=== PATIENT | female | born 1955 | race Two or more races ===

== ENCOUNTER 2023-08-26 07:36 | Outpatient (CLI) | payer OTHER | END 2023-08-26 07:37 | disposition home or self-care (01) | LOC: NUCLEAR 07:36 | DX: I73.9 Peripheral vascular disease, unspecified (principal) ==

== ENCOUNTER 2023-09-14 07:39 | Outpatient (CLI) | payer OTHER | END 2023-09-14 07:40 | disposition home or self-care (01) | LOC: NUCLEAR 07:39 | PROVIDERS: ATTEND Internal Medicine | DX: I82.403 Acute embolism and thrombosis of unspecified deep veins of lower extremity, bilateral (principal) ==

== ENCOUNTER 2024-02-22 08:35 | Inpatient (IN) | payer OTHER ==
[~2024-02-22] VITALS: Ht 157.5 cm; Wt 108.9 kg
[2024-02-22] MEDS ORDERED: AVAPRO150 MG (08:46)
[2024-02-22] MEDS ORDERED: PROTONIX40 MG (08:46)
[2024-02-22] MEDS ORDERED: PEPCID AC20 MG (08:47)
[2024-02-22] MEDS ORDERED: NEURONTIN600 M1 (08:47)
[2024-02-22] MEDS ORDERED: ELIQUIS5 MG (08:47)
[2024-02-22] MEDS ORDERED: DETROL LA4 MG (08:48)
[2024-02-22] MEDS ORDERED: DAFLONEX-XL 11300 MG (08:49)
[2024-02-22 11:06] LABS: URINE APPEARANCE Clear; URINE BILIRRUBIN Negative (NEGATIVE); URINE BLOOD Moderate; URINE COLOR Yellow; URINE GLUCOSE Negative (NEGATIVE); URINE KETONE Negative (NEGATIVE); URINE LEUKOCYTE Negative; URINE NITRATE Negative; URINE PROTEIN Negative (NEGATIVE); URINE UROBILINOGEN 0.2 E.U./dl
[2024-02-22 11:07] LABS: URINE BACTERIA 230.4 uL (0.0-1933); URINE EPITHELIAL CELLS 17.5 uL (0.0-38.8); URINE RBC 76.9 uL (0.0-20.8); URINE WBC 5.5 uL (0.0-23.2)
[2024-02-22 11:13] LABS: HEMATOCRIT 32.4 % (36.0-45.00); HEMOGLOBIN 10.9 g/dL (12.0-15.00); MEAN CELL VOLUME 90.4 fL (80.00-100.00); MEAN CORPUSCULAR HEMOGLOBIN 30.4 pg (27.00-32.0); MEAN CORPUSCULAR HGB CONC 33.6 g/dl (32.0-36.0); PLATELET COUNT 239 K/uL (150-450); RED BLOOD COUNT 3.59 M/uL (4.00-6.00); RED CELL DISTRIBUTION WIDTH 13.6 % (11.5-14.5)
[2024-02-22 11:35] LABS: ALBUMIN 3.7 gm/dL (3.4-5.0); BILIRUBIN TOTAL 0.57 mg/dL (0.3-1.2); CALCIUM 9.4 mg/dL (8.5-10.1); CREATININE SERUM 1.06 mg/dL (0.55-1.02); GFR 51.71; GLOBULINA 3.7 G/DL (2.4-3.5); POTASSIUM 4.28 mEq/L (3.5-5.1); TOTAL PROTEIN 7.4 gm/dL (6.4-8.2)
[2024-02-22 11:37] LABS: URINE CAST 0.15 uL (0.0-1.40)
[2024-02-22] MEDS ORDERED: GABAPENTIN 600 MG TABLET PO SCH (14:40)
[2024-02-22] MEDS ORDERED: APIXABAN 5 MG TABLET PO SCH (14:42)
[2024-02-22] MEDS ORDERED: PANTOPRAZOLE SODIUM 40 MG TABLET.DR PO SCH (14:43)
[2024-02-22] MEDS ORDERED: 0.9 % SODIUM CHLORIDE 1,000 ML IV SCH (14:45)
[2024-02-22 16:00] VITALS: BP 180/65; O2SAT 97
[2024-02-22] MEDS ORDERED: CLINDAMYCIN PHOSPHATE 300 MG in 0.9 % SODIUM CHLORIDE 50 ML IV SCH (17:00)
[2024-02-22] MEDS ORDERED: IRBESARTAN 150 MG TABLET PO SCH (17:00)
[2024-02-22] MEDS ORDERED: FAMOTIDINE/PF 20 MG in 0.9 % SODIUM CHLORIDE 100 ML IV SCH (17:00)
[2024-02-22 17:12] LABS: INR 1.07; PARTIAL THROMBOPLASTIN TIME 29.9 SECONDS (22.0-34.0); PROTHROMBIN TIME 11.6 SECONDS (9.0-11.5)
[2024-02-22 17:33] LABS: ALBUMIN 3.6 gm/dL (3.4-5.0); CREATININE SERUM 0.88 mg/dL (0.55-1.02); GFR 64.09; PHOSPHOROUS 4.1 mg/dL (2.5-4.9); POTASSIUM 4.02 mEq/L (3.5-5.1)
[2024-02-22 17:34] LABS: C-REACTIVE PROTEIN 0.77 MG/DL (0.00-0.29)
[2024-02-22 17:38] VITALS: BP 158/72; O2SAT 96
[2024-02-22 20:58] VITALS: BP 150/61
[2024-02-23 02:43] VITALS: BP 106/55
[2024-02-23 10:29] VITALS: BP 115/55
[2024-02-23] MEDS ORDERED: CEFTRIAXONE SODIUM 2,000 MG VIAL IV SCH (12:22)
[2024-02-23] MEDS ORDERED: ACETAMINOPHEN 500 MG GEL..CAP PO PRN (15:00)
[2024-02-23] MEDS ORDERED: VANCOMYCIN HCL 5 MG/ML REDILUIDO IV SCH (17:00)
[2024-02-23 18:47] VITALS: BP 120/70; O2SAT 100
[2024-02-23] MEDS ORDERED: DIPHENHYDRAMINE HCL 50 MG/ML VIAL 1ML ONE (21:33)
[2024-02-23] MEDS ORDERED: DIPHENHYDRAMINE HCL 50 MG/ML VIAL 1ML IV ONE (21:45)
[2024-02-24 01:53] VITALS: BP 137/57
[2024-02-24 07:15] LABS: HEMATOCRIT 29.1 % (36.0-45.00); HEMOGLOBIN 9.9 g/dL (12.0-15.00); MEAN CELL VOLUME 89.6 fL (80.00-100.00); MEAN CORPUSCULAR HEMOGLOBIN 30.6 pg (27.00-32.0); MEAN CORPUSCULAR HGB CONC 34.1 g/dl (32.0-36.0); PLATELET COUNT 204 K/uL (150-450); RED BLOOD COUNT 3.25 M/uL (4.00-6.00); RED CELL DISTRIBUTION WIDTH 13.5 % (11.5-14.5)
[2024-02-24 07:42] LABS: BILIRUBIN TOTAL 0.46 mg/dL (0.3-1.2); CALCIUM 8.5 mg/dL (8.5-10.1); CREATININE SERUM 0.84 mg/dL (0.55-1.02); GFR 67.63; GLOBULINA 2.9 G/DL (2.4-3.5); MAGNESIUM 1.8 mg/dL (1.8-2.4); PHOSPHOROUS 3.8 mg/dL (2.5-4.9); POTASSIUM 4.15 mEq/L (3.5-5.1); TOTAL PROTEIN 5.9 gm/dL (6.4-8.2)
[2024-02-24 07:45] LABS: C-REACTIVE PROTEIN 0.6 MG/DL (0.00-0.29)
[2024-02-24 08:30] VITALS: BP 124/61; O2SAT 98
[2024-02-24 15:44] LABS: PH,URINE 6.5 (5.0-8.0); URINE APPEARANCE Clear; URINE BILIRRUBIN Negative (NEGATIVE); URINE BLOOD Moderate; URINE COLOR Yellow; URINE GLUCOSE Negative (NEGATIVE); URINE KETONE Negative (NEGATIVE); URINE LEUKOCYTE Negative; URINE NITRATE Negative; URINE PROTEIN Negative (NEGATIVE); URINE UROBILINOGEN 0.2 E.U./dl
[2024-02-24 15:47] LABS: URINE BACTERIA 1326.7 uL (0.0-1933)
[2024-02-24 15:49] LABS: URINE EPITHELIAL CELLS 1.2 uL (0.0-38.8)
[2024-02-24] MEDS ORDERED: DIPHENHYDRAMINE HCL 50 MG/ML VIAL 1ML IV SCH (17:00)
[2024-02-24 18:33] VITALS: BP 145/64; O2SAT 100
[2024-02-25] VITALS: BP 124/68
[2024-02-25 08:17] VITALS: BP 144/82
[2024-02-25] MEDS ORDERED: IRBESARTAN 150 MG TABLET PO SCH (09:00)
[2024-02-25 18:12] VITALS: BP 150/67; O2SAT 96
[2024-02-26 01:58] VITALS: BP 133/76; O2SAT 97
[2024-02-26 08:45] VITALS: BP 122/70
[2024-02-26 10:36] LABS: HEMATOCRIT 31.4 % (36.0-45.00); HEMOGLOBIN 10.6 g/dL (12.0-15.00); MEAN CELL VOLUME 89.5 fL (80.00-100.00); MEAN CORPUSCULAR HEMOGLOBIN 30.2 pg (27.00-32.0); MEAN CORPUSCULAR HGB CONC 33.7 g/dl (32.0-36.0); PLATELET COUNT 213 K/uL (150-450); RED BLOOD COUNT 3.51 M/uL (4.00-6.00); RED CELL DISTRIBUTION WIDTH 13.5 % (11.5-14.5)
[2024-02-26 11:01] LABS: ALBUMIN 3.2 gm/dL (3.4-5.0); BILIRUBIN TOTAL 0.5 mg/dL (0.3-1.2); CALCIUM 8.9 mg/dL (8.5-10.1); CREATININE SERUM 0.94 mg/dL (0.55-1.02); GFR 59.39; GLOBULINA 2.9 G/DL (2.4-3.5); POTASSIUM 4.13 mEq/L (3.5-5.1); TOTAL PROTEIN 6.1 gm/dL (6.4-8.2)
[2024-02-26] MEDS ORDERED: FAMOtidine 20 MG TABLET PO SCH (17:00)
[2024-02-26 17:39] VITALS: BP 128/66; O2SAT 98
[2024-02-27 02:30] VITALS: BP 136/71; O2SAT 97
[2024-02-27 07:57] LABS: HEMATOCRIT 31.5 % (36.0-45.00); HEMOGLOBIN 10.8 g/dL (12.0-15.00); MEAN CELL VOLUME 90.3 fL (80.00-100.00); MEAN CORPUSCULAR HEMOGLOBIN 30.9 pg (27.00-32.0); MEAN CORPUSCULAR HGB CONC 34.2 g/dl (32.0-36.0); PLATELET COUNT 223 K/uL (150-450); RED BLOOD COUNT 3.49 M/uL (4.00-6.00); RED CELL DISTRIBUTION WIDTH 13.3 % (11.5-14.5)
[2024-02-27 08:31] LABS: ALBUMIN 3.3 gm/dL (3.4-5.0); BILIRUBIN TOTAL 0.47 mg/dL (0.3-1.2); CALCIUM 8.6 mg/dL (8.5-10.1); CREATININE SERUM 0.83 mg/dL (0.55-1.02); GFR 68.57; GLOBULINA 2.9 G/DL (2.4-3.5); MAGNESIUM 1.9 mg/dL (1.8-2.4); PHOSPHOROUS 3.3 mg/dL (2.5-4.9); POTASSIUM 3.93 mEq/L (3.5-5.1); TOTAL PROTEIN 6.2 gm/dL (6.4-8.2)
[2024-02-27 08:32] LABS: C-REACTIVE PROTEIN 0.58 MG/DL (0.00-0.29)
[2024-02-27 10:02] VITALS: BP 123/75
[2024-02-27 17:00] LABS: PH,URINE 6.5 (5.0-8.0); URINE APPEARANCE Clear; URINE BILIRRUBIN Negative (NEGATIVE); URINE BLOOD Small; URINE COLOR Yellow; URINE GLUCOSE Negative (NEGATIVE); URINE KETONE Negative (NEGATIVE); URINE LEUKOCYTE Negative; URINE NITRATE Negative; URINE PROTEIN Negative (NEGATIVE); URINE UROBILINOGEN 0.2 E.U./dl
[2024-02-27 17:04] LABS: URINE RBC 27.6 uL (0.0-20.8); URINE WBC 2.3 uL (0.0-23.2)
[2024-02-27 17:20] LABS: URINE BACTERIA 3.7 uL (0.0-1933)
[2024-02-27 17:31] VITALS: BP 117/74; O2SAT 98
[2024-02-28 01:47] VITALS: BP 128/59; O2SAT 98
[2024-02-28 09:58] VITALS: BP 122/74
[2024-02-28 18:35] VITALS: BP 119/56
[2024-02-29 02:02] VITALS: BP 129/51
[2024-02-29 07:48] LABS: HEMATOCRIT 31.3 % (36.0-45.00); HEMOGLOBIN 10.8 g/dL (12.0-15.00); MEAN CELL VOLUME 89.7 fL (80.00-100.00); MEAN CORPUSCULAR HEMOGLOBIN 30.9 pg (27.00-32.0); MEAN CORPUSCULAR HGB CONC 34.5 g/dl (32.0-36.0); PLATELET COUNT 229 K/uL (150-450); RED BLOOD COUNT 3.49 M/uL (4.00-6.00); RED CELL DISTRIBUTION WIDTH 13.5 % (11.5-14.5)
[2024-02-29 08:40] LABS: ALBUMIN 3.1 gm/dL (3.4-5.0); BILIRUBIN TOTAL 0.49 mg/dL (0.3-1.2); CALCIUM 8.9 mg/dL (8.5-10.1); CREATININE SERUM 0.94 mg/dL (0.55-1.02); GFR 59.39; GLOBULINA 2.8 G/DL (2.4-3.5); POTASSIUM 4.02 mEq/L (3.5-5.1); TOTAL PROTEIN 5.9 gm/dL (6.4-8.2)
[2024-02-29 09:00] VITALS: BP 154/77; O2SAT 99
[2024-02-29 19:12] VITALS: BP 145/85
[2024-03-01 03:03] VITALS: BP 106/64; O2SAT 96
[2024-03-01 09:11] VITALS: BP 110/69
[2024-03-01 17:52] VITALS: BP 171/58
[2024-03-02 01:27] VITALS: BP 125/66; O2SAT 97
[2024-03-02 09:05] LABS: HEMATOCRIT 30.8 % (36.0-45.00); HEMOGLOBIN 10.4 g/dL (12.0-15.00); MEAN CELL VOLUME 89.9 fL (80.00-100.00); MEAN CORPUSCULAR HEMOGLOBIN 30.4 pg (27.00-32.0); MEAN CORPUSCULAR HGB CONC 33.8 g/dl (32.0-36.0); PLATELET COUNT 220 K/uL (150-450); RED BLOOD COUNT 3.43 M/uL (4.00-6.00); RED CELL DISTRIBUTION WIDTH 13.7 % (11.5-14.5)
[2024-03-02 09:11] VITALS: BP 126/69
[2024-03-02 09:48] LABS: ALBUMIN 3.1 gm/dL (3.4-5.0); BILIRUBIN TOTAL 0.33 mg/dL (0.3-1.2); CALCIUM 8.5 mg/dL (8.5-10.1); CREATININE SERUM 0.86 mg/dL (0.55-1.02); GFR 65.81; GLOBULINA 2.9 G/DL (2.4-3.5); POTASSIUM 3.98 mEq/L (3.5-5.1)
[2024-03-02] MEDS ORDERED: FAMOtidine 20 MG TABLET PO SCH (17:00)
[2024-03-02 17:21] VITALS: BP 145/77
[2024-03-03 02:18] VITALS: BP 126/77; O2SAT 97
[2024-03-03 09:10] VITALS: BP 150/80; O2SAT 97
== END 2024-03-03 14:57 | disposition home or self-care (01) | DRG 580 ==
LOC: ER 08:36 → SEC-K 14:53 → MEDJ 14:53
PROVIDERS: Emergency Medicine; General Practice; Internal Medicine Infectious Disease; ADMIT Internal Medicine; ATTEND Internal Medicine
PROC: B54DZZZ Ultrasonography of Bilateral Lower Extremity Veins (ICD-10-PCS; 2024-02-22)
PROC: B44HZZZ Ultrasonography of Bilateral Lower Extremity Arteries (ICD-10-PCS; 2024-02-23)
PROC: BQ3DZZZ Magnetic Resonance Imaging (MRI) of Right Lower Leg (ICD-10-PCS; 2024-02-23)
PROC: B24BZZZ Ultrasonography of Heart with Aorta (ICD-10-PCS; 2024-02-23)
PROC: 02HV33Z Insertion of Infusion Device into Superior Vena Cava, Percutaneous Approach (ICD-10-PCS; 2024-02-26)
PROC: 0JDQ0ZZ Extraction of Right Foot Subcutaneous Tissue and Fascia, Open Approach (ICD-10-PCS; principal; 2024-03-02)
DX: L89.899 Pressure ulcer of other site, unspecified stage (principal); I82.442 Acute embolism and thrombosis of left tibial vein; I82.452 Acute embolism and thrombosis of left peroneal vein; L08.9 Local infection of the skin and subcutaneous tissue, unspecified; B96.1 Klebsiella pneumoniae [K. pneumoniae] as the cause of diseases classified elsewhere; B96.89 Other specified bacterial agents as the cause of diseases classified elsewhere; I10 Essential (primary) hypertension; I87.2 Venous insufficiency (chronic) (peripheral); G62.9 Polyneuropathy, unspecified
CPT/HCPCS: 73221

== ENCOUNTER 2025-01-18 12:09 | Inpatient (IN) | payer OTHER ==
[~2025-01-18] VITALS: Ht 157.5 cm; Wt 120.2 kg
[~2025-01-18 12:09] MED LIST: AVAPRO150 MG; DAFLONEX-XL 11300 MG; DETROL LA4 MG; ELIQUIS5 MG; NEURONTIN600 M1; PEPCID AC20 MG; PROTONIX40 MG
--- NOTE | 2025-01-18 12:31 | NUR ---
PACIENTE FEMINA, C/C ULCERA PIE DERECHO, REFERIDO POR EL DR. Edilia TAYLOR STALLINGS PARA SER EVALUADA Y POSIBLE ADMISION DIRECTA.
[2025-01-18] MEDS ORDERED: 0.9 % SODIUM CHLORIDE 1,000 ML IV SCH (12:45)
[2025-01-18] MEDS ORDERED: PIPERACILLIN/TAZOBACTAM SODIUM 3.375 GM VIAL IV ONE ×2 (13:00→13:26)
--- NOTE | 2025-01-18 16:11 | NUR ---
CHAD SOTOMAYOR EDUCA A PTE SOBRE [place] MEDICO, ESTA REFIERE ENTENDER. SE EXTRAEN MUESTRAS DE LABORATORIO Y SE ADMINISTRAN MEDICAMENTOS PRIMITIVO ORDEN MEDICA. PENDIENTE U/A.
[2025-01-18 16:19] LABS: BASO % 0.4 % (0.1-1.2); EOS # 0.35 (0.04-0.54); EOS % 3.7 % (0.7-7.0); LYMPH # 2.87 (1.18-3.74); LYMPH % 30.7 % (19.3-53.1); MEAN PLATELET VOLUME 10.50 fl (9.4-12.4); MONO # 0.76 (0.24-0.82); MONO % 8.1 % (4.7-12.5); NEUT # 5.31 (1.56-6.13); NEUT % 56.9 % (34.0-71.1); RED CELL DISTRIBUTION WIDTH 12.5 % (11.6-14.4)
[2025-01-18 16:19] LABS: URINE APPEARANCE Clear; URINE BILIRRUBIN Negative (NEGATIVE); URINE BLOOD Moderate; URINE COLOR Yellow; URINE GLUCOSE Negative (NEGATIVE); URINE KETONE Trace (NEGATIVE); URINE LEUKOCYTE Negative; URINE NITRATE Negative; URINE PROTEIN Trace (NEGATIVE); URINE UROBILINOGEN 0.2 E.U./dl
[2025-01-18 16:22] LABS: URINE BACTERIA 41.9 uL (0.0-1933); URINE EPITHELIAL CELLS 11.9 uL (0.0-38.8); URINE RBC 88.5 uL (0.0-20.8); URINE WBC 2.4 uL (0.0-23.2)
[2025-01-18 16:51] LABS: BUN CREA RATIO 21.0 (7.0-25.0); CREATININE SERUM 1.13 mg/dL (0.55-1.02); GFR 47.88; GLUCOSE FASTING 98.0 mg/dL (65-100); OSMOLALITY SERUM 296.0 MOSM/KG (275-295)
[2025-01-18 17:02] LABS: URINE CAST 1.02 uL (0.0-1.40)
[2025-01-18] MEDS ORDERED: VANCOMYCIN HCL 1,000 MG VIAL IV SCH (19:47)
[2025-01-18] MEDS ORDERED: ACETAMINOPHEN 500 MG GEL..CAP PO PRN (20:00)
[2025-01-18] MEDS ORDERED: MEROPENEM 500 MG/VIAL VIAL IV SCH (20:00)
[2025-01-18] MEDS ORDERED: RINGERS SOLUTION,LACTATED 1,000 ML IV SCH (20:00)
[2025-01-18] MEDS ORDERED: VANCOMYCIN HCL 1,000 MG VIAL ONE (20:30)
[2025-01-18 21:54] LABS: INR 1.07
[2025-01-19 01:17] VITALS: BP 121/70; O2SAT 98
[2025-01-19] MEDS ORDERED: APIXABAN 5 MG TABLET PO SCH (05:00)
[2025-01-19 08:48] VITALS: BP 144/62
[2025-01-19] MEDS ORDERED: FAMOTIDINE/PF 20 MG in 0.9 % SODIUM CHLORIDE 8 ML IV PUSH SCH (09:00)
[2025-01-19] MEDS ORDERED: SODIUM CHLORIDE 0.45 % 1,000 ML IV SCH (09:00)
[2025-01-19] MEDS ORDERED: IRBESARTAN 150 MG TABLET PO SCH (09:00)
[2025-01-19] MEDS ORDERED: GABAPENTIN 600 MG TABLET PO SCH (09:00)
[2025-01-19] MEDS ORDERED: FAMOTIDINE/PF 20 MG/2 ML VIAL ONE (10:13)
[2025-01-19 16:00] VITALS: BP 149/67
[2025-01-19] MEDS ORDERED: LACTOBACILLUS ACIDOPHILUS 1 CAP CAP PO SCH (17:00)
[2025-01-19] MEDS ORDERED: METRONIDAZOLE/SODIUM CHLORIDE 500 MG/100 ML PIGGYBACK IV SCH (17:00)
[2025-01-19] MEDS ORDERED: CEFEPIME HCL 2,000 MG VIAL IV SCH (17:00)
[2025-01-19] MEDS ORDERED: LINEZOLID IN DEXTROSE 5% 300 ML IV SCH (21:00)
[2025-01-20 00:57] VITALS: BP 120/69; O2SAT 99
[2025-01-20 08:00] LABS: BASO % 0.4 % (0.1-1.2); EOS # 0.40 (0.04-0.54); EOS % 6.0 % (0.7-7.0); LYMPH # 1.96 (1.18-3.74); LYMPH % 29.3 % (19.3-53.1); MEAN PLATELET VOLUME 10.80 fl (9.4-12.4); MONO # 0.60 (0.24-0.82); MONO % 9.0 % (4.7-12.5); NEUT # 3.69 (1.56-6.13); NEUT % 55.0 % (34.0-71.1); RED CELL DISTRIBUTION WIDTH 12.4 % (11.6-14.4)
[2025-01-20 08:12] LABS: ALT/SGPT 16.0 U/L (12-78); AST/SGOT 14.0 U/L (15-37); BILIRUBIN TOTAL 0.68 mg/dL (0.3-1.2); BUN CREA RATIO 23.0 (7.0-25.0); CREATININE SERUM 0.84 mg/dL (0.55-1.02); GFR 67.42; GLOBULINA 2.8 G/DL (2.4-3.5); GLUCOSE FASTING 102.0 mg/dL (65-100); OSMOLALITY SERUM 291.0 MOSM/KG (275-295)
[2025-01-20] MEDS ORDERED: PANTOPRAZOLE SODIUM 40 MG TABLET.DR PO SCH (09:00)
[2025-01-20] MEDS ORDERED: CHLORHEXIDINE GLUCONATE 120 ML BOTTLE TOP SCH (09:00)
[2025-01-20 10:01] VITALS: BP 125/74; O2SAT 98
[2025-01-20 18:01] VITALS: BP 157/85; O2SAT 100
[2025-01-21 01:39] VITALS: BP 140/76; O2SAT 97
[2025-01-21 10:18] VITALS: BP 118/72; O2SAT 98
[2025-01-21 17:47] VITALS: BP 116/64; O2SAT 97
[2025-01-21] MEDS ORDERED: GABAPENTIN 800 MG TABLET PO SCH (21:00)
[2025-01-22 01:17] VITALS: BP 145/74; O2SAT 98
[2025-01-22 09:39] LABS: BASO % 0.4 % (0.1-1.2); EOS # 0.31 (0.04-0.54); EOS % 6.4 % (0.7-7.0); LYMPH # 1.88 (1.18-3.74); LYMPH % 38.8 % (19.3-53.1); MEAN PLATELET VOLUME 10.50 fl (9.4-12.4); MONO # 0.28 (0.24-0.82); MONO % 5.8 % (4.7-12.5); NEUT # 2.33 (1.56-6.13); NEUT % 48.2 % (34.0-71.1); RED CELL DISTRIBUTION WIDTH 12.5 % (11.6-14.4)
[2025-01-22 10:17] VITALS: BP 100/66; O2SAT 98
[2025-01-22 10:30] LABS: ALT/SGPT 26.0 U/L (12-78); AST/SGOT 23.0 U/L (15-37); BILIRUBIN TOTAL 0.78 mg/dL (0.3-1.2); BUN CREA RATIO 18.0 (7.0-25.0); CREATININE SERUM 0.87 mg/dL (0.55-1.02); GFR 64.75; GLOBULINA 2.9 G/DL (2.4-3.5); GLUCOSE FASTING 135.0 mg/dL (65-100); OSMOLALITY SERUM 294.0 MOSM/KG (275-295)
[2025-01-22 10:57] LABS: ERYTHROCYTE SEDIMENTATION RATE 55 mm/hr (0-30)
[2025-01-22 18:29] VITALS: BP 128/83
[2025-01-22] MEDS ORDERED: LINEZOLID 600 MG TABLET PO SCH (21:00)
[2025-01-23 03:19] VITALS: BP 127/68; O2SAT 96
[2025-01-23 09:00] VITALS: BP 110/67; O2SAT 97
[2025-01-23 17:22] VITALS: BP 159/52
[2025-01-23] MEDS ORDERED: LINEZOLID IN DEXTROSE 5% 600 MG/300 ML PIGGYBAG IV SCH (21:00)
[2025-01-24 03:34] VITALS: BP 122/73; O2SAT 94
[2025-01-24 08:24] LABS: BASO % 0.4 % (0.1-1.2); EOS # 0.34 (0.04-0.54); EOS % 6.5 % (0.7-7.0); LYMPH # 2.12 (1.18-3.74); LYMPH % 40.8 % (19.3-53.1); MEAN PLATELET VOLUME 10.60 fl (9.4-12.4); MONO # 0.64 (0.24-0.82); NEUT # 2.07 (1.56-6.13); NEUT % 39.8 % (34.0-71.1); RED CELL DISTRIBUTION WIDTH 12.6 % (11.6-14.4)
[2025-01-24 08:53] LABS: MONO % 12.3 % (4.7-12.5)
[2025-01-24 08:58] LABS: ALT/SGPT 26.0 U/L (12-78); AST/SGOT 32.0 U/L (15-37); BILIRUBIN TOTAL 0.51 mg/dL (0.3-1.2); BUN CREA RATIO 20.0 (7.0-25.0); CREATININE SERUM 0.84 mg/dL (0.55-1.02); GFR 67.42; GLOBULINA 2.7 G/DL (2.4-3.5); GLUCOSE FASTING 97.0 mg/dL (65-100); OSMOLALITY SERUM 294.0 MOSM/KG (275-295)
[2025-01-24 09:58] VITALS: BP 150/69; O2SAT 96
[2025-01-24] MEDS ORDERED: DEXTROSE 5 % IN WATER 1,000 ML IV SCH (15:15)
[2025-01-24 16:10] VITALS: BP 137/79; O2SAT 95
[2025-01-24] MEDS ORDERED: IRBESARTAN 150 MG TABLET PO SCH (17:00)
[2025-01-25 03:34] VITALS: BP 138/73; O2SAT 96
[2025-01-25 09:24] VITALS: BP 126/86; O2SAT 95
[2025-01-25 17:22] VITALS: BP 143/85; O2SAT 97
[2025-01-26 00:43] VITALS: BP 112/67; O2SAT 98
[2025-01-26 08:06] LABS: BASO % 0.7 % (0.1-1.2); EOS # 0.40 (0.04-0.54); EOS % 7.0 % (0.7-7.0); LYMPH # 2.31 (1.18-3.74); LYMPH % 40.2 % (19.3-53.1); MEAN PLATELET VOLUME 11.10 fl (9.4-12.4); MONO # 0.73 (0.24-0.82); NEUT # 2.25 (1.56-6.13); NEUT % 39.2 % (34.0-71.1); RED CELL DISTRIBUTION WIDTH 12.5 % (11.6-14.4)
[2025-01-26 08:08] LABS: MONO % 12.7 % (4.7-12.5)
[2025-01-26 08:13] LABS: ALT/SGPT 39.0 U/L (12-78); AST/SGOT 46.0 U/L (15-37); BILIRUBIN TOTAL 0.64 mg/dL (0.3-1.2); BUN CREA RATIO 28.0 (7.0-25.0); CREATININE SERUM 0.92 mg/dL (0.55-1.02); GFR 60.7; GLOBULINA 2.6 G/DL (2.4-3.5); GLUCOSE FASTING 97.0 mg/dL (65-100); OSMOLALITY SERUM 292.0 MOSM/KG (275-295)
[2025-01-26 08:14] VITALS: BP 112/70
[2025-01-26 18:35] VITALS: BP 105/70; O2SAT 96
[2025-01-27 01:30] VITALS: BP 116/62; O2SAT 96
[2025-01-27 08:03] VITALS: BP 138/76
[2025-01-27] MEDS ORDERED: IRBESARTAN 150 MG TABLET PO SCH (09:00)
[2025-01-27] MEDS ORDERED: CYANOCOBALAMIN (VITAMIN B-12) 1,000 MCG TABLET PO NR (13:15)
[2025-01-27] MEDS ORDERED: IRON FUM,PS/FOLIC/BCOMP,C NO.9 1 CAP CAPSULE PO NR (13:15)
[2025-01-27 16:25] VITALS: BP 119/68
[2025-01-27] MEDS ORDERED: IRBESARTAN 75 MG TABLET PO SCH (17:00)
[2025-01-27] MEDS ORDERED: DOXAZOSIN MESYLATE 2 MG TABLET PO SCH (17:00)
[2025-01-27 19:23] VITALS: BP 103/57
[2025-01-28 02:00] VITALS: BP 98/61; O2SAT 94
[2025-01-28] MEDS ORDERED: CYANOCOBALAMIN (VITAMIN B-12) 1,000 MCG TABLET PO SCH (09:00)
[2025-01-28] MEDS ORDERED: IRON FUM,PS/FOLIC/BCOMP,C NO.9 1 CAP CAPSULE PO SCH (09:00)
[2025-01-28 09:05] VITALS: BP 126/78
[2025-01-28] MEDS ORDERED: ONDANSETRON HCL 4 MG in 0.9 % SODIUM CHLORIDE 50 ML IV PRN (10:45)
[2025-01-28 16:11] VITALS: BP 106/64; O2SAT 95
[2025-01-28] MEDS ORDERED: PANTOPRAZOLE SODIUM 40 MG TABLET.DR PO SCH (17:00)
[2025-01-29 02:49] VITALS: BP 91/43; O2SAT 95
[2025-01-29 06:59] LABS: BASO % 0.6 % (0.1-1.2); EOS # 0.30 (0.04-0.54); EOS % 4.8 % (0.7-7.0); LYMPH # 2.41 (1.18-3.74); LYMPH % 38.3 % (19.3-53.1); MEAN PLATELET VOLUME 10.40 fl (9.4-12.4); MONO # 0.69 (0.24-0.82); MONO % 11.0 % (4.7-12.5); NEUT # 2.83 (1.56-6.13); NEUT % 45.0 % (34.0-71.1); RED CELL DISTRIBUTION WIDTH 12.5 % (11.6-14.4)
[2025-01-29 07:15] LABS: ALT/SGPT 40.0 U/L (12-78); AST/SGOT 27.0 U/L (15-37); BILIRUBIN TOTAL 0.55 mg/dL (0.3-1.2); BUN CREA RATIO 30.0 (7.0-25.0); CREATININE SERUM 1.02 mg/dL (0.55-1.02); GFR 53.89; GLOBULINA 2.6 G/DL (2.4-3.5); GLUCOSE FASTING 99.0 mg/dL (65-100); OSMOLALITY SERUM 293.0 MOSM/KG (275-295)
[2025-01-29 08:50] VITALS: BP 130/60
[2025-01-29 16:14] VITALS: BP 86/45
[2025-01-30] MEDS ORDERED: SODIUM CHLORIDE 0.45 % 1,000 ML IV STA (00:08)
[2025-01-30 02:14] VITALS: BP 90/53; O2SAT 99
[2025-01-30 07:00] VITALS: BP 115/63; O2SAT 96
[2025-01-30] MEDS ORDERED: RINGERS SOLUTION,LACTATED 1,000 ML IV STA (10:45)
[2025-01-30] MEDS ORDERED: IRON FUM,PS/FOLIC/BCOMP,C NO.9 1 CAP CAPSULE PO NR (14:00)
[2025-01-30] MEDS ORDERED: SODIUM CHLORIDE 0.45 % 1,000 ML IV SCH (18:00)
[2025-01-30 18:04] VITALS: BP 141/64
[2025-01-31 01:49] VITALS: BP 141/54; O2SAT 98
[2025-01-31 09:00] VITALS: BP 129/77; O2SAT 98
[2025-01-31] MEDS ORDERED: IRON FUM,PS/FOLIC/BCOMP,C NO.9 1 CAP CAPSULE PO SCH (09:00)
[2025-01-31] MEDS ORDERED: ONDANSETRON HCL 4 MG in DEXTROSE 5 % IN WATER 50 ML IV PRN (15:30)
[2025-01-31] MEDS ORDERED: SUCRALFATE 1 G TABLET PO SCH (17:00)
[2025-01-31 17:47] VITALS: BP 155/75
[2025-02-01 01:30] VITALS: BP 138/84; O2SAT 95
[2025-02-01 06:49] LABS: BASO % 0.6 % (0.1-1.2); EOS # 0.28 (0.04-0.54); EOS % 4.3 % (0.7-7.0); LYMPH # 2.63 (1.18-3.74); LYMPH % 40.2 % (19.3-53.1); MEAN PLATELET VOLUME 11.70 fl (9.4-12.4); MONO # 0.77 (0.24-0.82); MONO % 11.8 % (4.7-12.5); NEUT # 2.80 (1.56-6.13); NEUT % 42.8 % (34.0-71.1); RED CELL DISTRIBUTION WIDTH 12.5 % (11.6-14.4)
[2025-02-01 07:33] LABS: ALT/SGPT 41.0 U/L (12-78); AST/SGOT 27.0 U/L (15-37); BILIRUBIN TOTAL 0.65 mg/dL (0.3-1.2); BUN CREA RATIO 33.0 (7.0-25.0); CREATININE SERUM 0.78 mg/dL (0.55-1.02); GFR 73.44; GLOBULINA 2.6 G/DL (2.4-3.5); GLUCOSE FASTING 101.0 mg/dL (65-100); OSMOLALITY SERUM 295.0 MOSM/KG (275-295)
[2025-02-01 08:55] VITALS: BP 145/71; O2SAT 97
[2025-02-01] MEDS ORDERED: DEXTROSE 5 % IN WATER 1,000 ML IV SCH (11:00)
[2025-02-01 18:16] VITALS: BP 138/73; O2SAT 96
[2025-02-01] MEDS ORDERED: OxyCODONE HCL 5 MG TABLET (ROXICODONE) PO ONE (19:00)
[2025-02-02 01:44] VITALS: BP 119/72; O2SAT 96
[2025-02-02 10:25] VITALS: BP 116/69; O2SAT 94
[2025-02-02] MEDS ORDERED: INTEGRA PLUS C1 EACH PO (14:26)
[2025-02-02] MEDS ORDERED: ELIQUIS5 MG PO (14:26)
[2025-02-02] MEDS ORDERED: GABAPENTIN800 MG PO (14:27)
[2025-02-02] MEDS ORDERED: FAMOTIDINE40 MG PO (14:27)
[2025-02-02] MEDS ORDERED: PANTOPRAZOLE SO40 MG PO (14:27)
[2025-02-02] MEDS ORDERED: NEURONTIN600 MG PO (14:27)
[2025-02-02] MEDS ORDERED: AVAPRO150 MG PO (14:27)
[2025-02-02] MEDS ORDERED: VITAMIN B-121000 MCG PO (14:27)
[2025-02-02] MEDS ORDERED: TRAM1TAB98 PO (14:28)
[2025-02-02] MEDS ORDERED: ZOFRAN8 MG PO (14:48)
[2025-02-02 15:45] VITALS: BP 127/68; O2SAT 96
== END 2025-02-02 16:20 | disposition home or self-care (01) | DRG 571 ==
LOC: ER 14:35 → MEDJ 20:01
PROVIDERS: Emergency Medicine; General Practice; Internal Medicine; Internal Medicine Infectious Disease; ADMIT Internal Medicine; ATTEND Internal Medicine
PROC: B54BZZZ Ultrasonography of Right Lower Extremity Veins (ICD-10-PCS; 2025-01-18)
PROC: B44FZZZ Ultrasonography of Right Lower Extremity Arteries (ICD-10-PCS; 2025-01-18)
PROC: 02HV33Z Insertion of Infusion Device into Superior Vena Cava, Percutaneous Approach (ICD-10-PCS; 2025-01-19)
PROC: BQ3LZZZ Magnetic Resonance Imaging (MRI) of Right Foot (ICD-10-PCS; 2025-01-19)
PROC: 8E0ZXY6 Isolation (ICD-10-PCS; 2025-01-19)
PROC: 0JBQ0ZZ Excision of Right Foot Subcutaneous Tissue and Fascia, Open Approach (ICD-10-PCS; principal; 2025-01-22)
PROC: 0JBQ0ZZ Excision of Right Foot Subcutaneous Tissue and Fascia, Open Approach (ICD-10-PCS; 2025-01-31)
PROC: BW40ZZZ Ultrasonography of Abdomen (ICD-10-PCS; 2025-01-31)
PROC: BW21ZZZ Computerized Tomography (CT Scan) of Abdomen and Pelvis (ICD-10-PCS; 2025-02-01)
DX: L97.519 Non-pressure chronic ulcer of other part of right foot with unspecified severity (principal); E87.0 Hyperosmolality and hypernatremia; N17.9 Acute kidney failure, unspecified; L03.115 Cellulitis of right lower limb; L08.9 Local infection of the skin and subcutaneous tissue, unspecified; B96.1 Klebsiella pneumoniae [K. pneumoniae] as the cause of diseases classified elsewhere; B95.2 Enterococcus as the cause of diseases classified elsewhere; B96.89 Other specified bacterial agents as the cause of diseases classified elsewhere; I10 Essential (primary) hypertension; G62.9 Polyneuropathy, unspecified; I48.91 Unspecified atrial fibrillation; I87.2 Venous insufficiency (chronic) (peripheral); E78.5 Hyperlipidemia, unspecified; E66.9 Obesity, unspecified; D64.9 Anemia, unspecified; N28.1 Cyst of kidney, acquired
CPT/HCPCS: 73221